=== PATIENT | female | born 1980 ===

== ENCOUNTER 2020-01-28 09:00 | Inpatient (IN) | payer OTHER ==
[~2020-01-28] VITALS: Ht 162.6 cm; Wt 59.0 kg
[2020-01-28] MEDS ORDERED: IRON236 MG PO (16:38)
== END 2020-02-06 10:48 | DRG 741 ==
LOC: ADM 09:00 → EDSTATUS 09:00 → OB/GYN 02-04 05:21 → O/R 02-04 05:21 → OB/GYN 02-04 07:00
PROVIDERS: ADMIT Obstetrics & Gynecology; ATTEND Obstetrics & Gynecology
PROC: 0UT60ZZ Resection of Left Fallopian Tube, Open Approach (ICD-10-PCS; 2020-02-04)
PROC: 0UT10ZZ Resection of Left Ovary, Open Approach (ICD-10-PCS; 2020-02-04)
PROC: 0DNW0ZZ Release Peritoneum, Open Approach (ICD-10-PCS; 2020-02-04)
PROC: 0UT90ZZ Resection of Uterus, Open Approach (ICD-10-PCS; principal; 2020-02-04 07:00)
DX: D06.7 Carcinoma in situ of other parts of cervix (principal); N72 Inflammatory disease of cervix uteri; N83.12 Corpus luteum cyst of left ovary; Z20.828 Contact with and (suspected) exposure to other viral communicable diseases; K66.0 Peritoneal adhesions (postprocedural) (postinfection); D25.1 Intramural leiomyoma of uterus; D25.2 Subserosal leiomyoma of uterus